=== PATIENT | male | born 1990 | race Caucasian/White ===

== ENCOUNTER 2020-11-20 09:33 | Emergency (ER) | payer OTHER ==
[~2020-11-20] VITALS: Ht 180.3 cm; Wt 71.8 kg
[2020-11-20 09:50] VITALS: BP 110/72; TEMP 98
[2020-11-20 11:22] VITALS: PULSE 75
== END 2020-11-20 11:22 | disposition home or self-care (01) ==
LOC: COL.ER 09:33
DX: S61.211A Laceration without foreign body of left index finger without damage to nail, initial encounter (principal); F17.210 Nicotine dependence, cigarettes, uncomplicated; Z23 Encounter for immunization; W26.0XXA Contact with knife, initial encounter